=== PATIENT | female | born 1960 | race Hispanic/Latino ===

== ENCOUNTER 2024-02-10 19:44 | Inpatient (IN) | payer SELFPAY ==
[~2024-02-10] VITALS: Ht 162.6 cm; Wt 81.2 kg
[2024-02-10 20:19] VITALS: TEMP 98.9
[2024-02-10] MEDS: Morphine 4mg INJECTION 4 MG/ML INJ IV ONE (20:51)
[2024-02-10] MEDS: ONDANSETRON HCL INJ 2MG/ML 2ML 2 MG/ML VIAL IV STA (20:51)
[2024-02-10] MEDS: SODIUM CHLORIDE 0.9% 1000ML 1,000 ML IV ONE (20:51)
[2024-02-10 20:54] LABS: BASOPHILS # (AUTO) 0.1 (0.0-0.1); BASOPHILS % 0.3 % (0.0-1.0); EOSINOPHILS # (AUTO) 0.1 (0.0-0.4); EOSINOPHILS % 0.4 % (0.0-6.0); HEMATOCRIT 35.6 % (34.2-44.1); LYMPHOCYTES # (AUTO) 1.7 (1.0-3.2); LYMPHOCYTES % 10.2 % (18.0-39.1); MEAN CORPUSCULAR HEMOGLOBIN 26.7 pg (28-32); MEAN CORPUSCULAR HGB CONC 30.9 g/dL (31-35); MEAN CORPUSCULAR VOLUME 86.4 fL (81-99); MONOCYTES # (AUTO) 0.9 (0.2-0.8); MONOCYTES % 5.3 % (4.4-11.3); NEUTROPHILS # (AUTO) 13.9 (2.1-6.9); NEUTROPHILS % 83.3 % (38.7-80.0); PLATELET COUNT 242 x10e3/uL (140-360); RED BLOOD COUNT 4.12 x10e6/uL (3.6-5.1); RED CELL DISTRIBUTION WIDTH 14.5 % (11.7-14.4); WHITE BLOOD COUNT 16.69 x10e3/uL (4.8-10.8)
[2024-02-10 20:56] LABS: BILIRUBIN,URINE NEGATIVE (NEGATIVE); CLARITY,URINE HAZY (CLEAR); COLOR,URINE YELLOW (YELLOW); GLUCOSE, URINE >=1000 (NEGATIVE); KETONES,URINE NEGATIVE (NEGATIVE); LEUKOCYTE ESTERASE ,URINE TRACE (NEGATIVE); NITRITE,URINE NEGATIVE (NEGATIVE); PH,URINE 5.5 (5 - 7); PROTEIN,URINE DIPSTICK >=300 (NEGATIVE); URINE UROBILINOGEN 0.2 mg/dL (0.2 - 1)
[2024-02-10 21:08] LABS: WBC,URINE (MAN) 21-50 /HPF (0-5)
[2024-02-10 21:09] LABS: BACTERIA,URINE FEW /HPF; EPITHELIAL CELLS,URINE MODERATE /LPF
[2024-02-10 21:10] LABS: ALBUMIN 3.7 g/dL (3.5-5.0); ALBUMIN/GLOBULIN RATIO 0.9 (0.8-2.0); ANION GAP 17.2 mmol/L (8-16); BILIRUBIN,TOTAL 0.7 mg/dL (0.2-1.2); CALCIUM 9.9 mg/dL (8.4-10.2); CREATININE, SERUM 3.12 mg/dL (0.57-1.11); POTASSIUM 4.2 mmol/L (3.5-5.1)
[2024-02-10] MEDS: HYDRALAZINE HCL 20 MG/ML VIAL IV PRN (22:27)
[2024-02-10] MEDS ORDERED: ACETAMINOPHEN 1000 MG/100 ML IV PRN (22:45)
[2024-02-10] MEDS ORDERED: DEXTROSE 50% SYRINGE 50 ML IV PRN (22:45)
[2024-02-10] MEDS: LACTATED RINGER'S 1,000 ML INJ ONE (22:46)
[2024-02-10] MEDS: METOPROLOL TARTRATE INJ 1 MG/ML VIAL IV ONE (22:46)
[2024-02-10 23:00] VITALS: PULSE 83; RESP 20
[2024-02-11] VITALS (11 sets, daily range): BP systolic 153–188; BP diastolic 76–81; PULSE 70–96; RESP 18–21; TEMP 97–98.6; O2SAT 93–100
[2024-02-11] MEDS: Morphine 4mg INJECTION 4 MG/ML INJ IV PRN (00:25)
[2024-02-11] MEDS ORDERED: FENOFIBRATE145 MG PO (01:33)
[2024-02-11] MEDS ORDERED: SINGULAIR10 MG PO (01:34)
[2024-02-11] MEDS ORDERED: FARXIGA5 MG PO (01:37)
[2024-02-11] MEDS ORDERED: METOPROLOL TART50 MG PO (01:37)
[2024-02-11] MEDS ORDERED: CLONIDINE HCL0.1 MG PO (01:39)
[2024-02-11] MEDS ORDERED: AMLODIPINE BESY10 MG PO (01:42)
[2024-02-11] MEDS ORDERED: ATORVASTATIN CA20 MG PO (01:45)
[2024-02-11] MEDS ORDERED: LISINOPRIL10 MG PO (01:45)
[2024-02-11] MEDS ORDERED: GLIMEPIRIDE2 MG PO (01:55)
[2024-02-11] MEDS ORDERED: INSULIN AS100 UNIT/2 (02:13)
[2024-02-11] MEDS ORDERED: INSULIN DE100 UNIT/2 (02:13)
[2024-02-11] MEDS ORDERED: BUPIVACAINE 0.5%/EPI 30 ML SDV INJ ONE (07:04)
[2024-02-11] MEDS ORDERED: BUPIVACAINE HCL 0.5% INJ 30 ML VIAL INJ ONE (07:04)
[2024-02-11] MEDS: INSULIN REGULAR, HUMAN 100 UNIT/1 ML SQ SCH (07:30)
[2024-02-11] MEDS ORDERED: ACETAMINOPHEN 325 MG TAB PO PRN (08:00)
[2024-02-11] MEDS ORDERED: ONDANSETRON HCL INJ 2MG/ML 2ML 2 MG/ML VIAL IV PRN (08:00)
[2024-02-11] MEDS: ONDANSETRON HCL INJ 2MG/ML 2ML 2 MG/ML VIAL ONE (08:19)
[2024-02-11] MEDS: SODIUM CHLORIDE 0.9% 1000ML 1,000 ML IV SCH (09:10)
[2024-02-11] MEDS: ONDANSETRON HCL INJ 2MG/ML 2ML 2 MG/ML VIAL IV PRN (11:27)
[2024-02-11] MEDS: HYDROCODONE/APAP 5MG-325MG TAB PO PRN (20:48)
[2024-02-12] VITALS (10 sets, daily range): BP systolic 154–188; BP diastolic 68–77; PULSE 72–110; RESP 18–20; TEMP 97.5–101.6; O2SAT 95–99
[2024-02-12 05:47] LABS: BASOPHILS # (AUTO) 0.1 (0.0-0.1); BASOPHILS % 0.5 % (0.0-1.0); EOSINOPHILS # (AUTO) 0.5 (0.0-0.4); EOSINOPHILS % 5.5 % (0.0-6.0); HEMATOCRIT 26.5 % (34.2-44.1); HEMOGLOBIN 8.2 g/dL (12.0-16.0); LYMPHOCYTES # (AUTO) 1.4 (1.0-3.2); LYMPHOCYTES % 14.7 % (18.0-39.1); MEAN CORPUSCULAR HEMOGLOBIN 26.5 pg (28-32); MEAN CORPUSCULAR HGB CONC 30.9 g/dL (31-35); MEAN CORPUSCULAR VOLUME 85.5 fL (81-99); MONOCYTES # (AUTO) 0.7 (0.2-0.8); MONOCYTES % 7.1 % (4.4-11.3); NEUTROPHILS # (AUTO) 6.6 (2.1-6.9); NEUTROPHILS % 71.8 % (38.7-80.0); PLATELET COUNT 184 x10e3/uL (140-360); RED CELL DISTRIBUTION WIDTH 14.7 % (11.7-14.4); WHITE BLOOD COUNT 9.17 x10e3/uL (4.8-10.8)
[2024-02-12 06:07] LABS: ANION GAP 14.3 mmol/L (8-16); CALCIUM 8.5 mg/dL (8.4-10.2); CREATININE, SERUM 3.23 mg/dL (0.57-1.11); POTASSIUM 4.3 mmol/L (3.5-5.1)
[2024-02-12] MEDS: HYDRALAZINE HCL 20 MG/ML VIAL IV PRN (10:23)
[2024-02-12] MEDS: NON-FORMULARY MEDICATION (Dapagliflozin Propanediol (Farxiga) 1 TAB) PO SCH (10:45)
[2024-02-12] MEDS: FENOFIBRATE 160 MG PO SCH (10:45)
[2024-02-12] MEDS: MONTELUKAST SODIUM 10 MG TAB PO SCH (12:31)
[2024-02-12] MEDS: ATORVASTATIN 40 MG TAB PO SCH (12:31)
[2024-02-12] MEDS: AMLODIPINE BESYLATE 10 MG TAB PO SCH (12:32)
[2024-02-12] MEDS: CLONIDINE HCL 0.1 MG TAB PO SCH (12:32)
[2024-02-12] MEDS: LISINOPRIL 20 MG TAB PO SCH (12:33)
[2024-02-12] MEDS: GLIMEPIRIDE 2 MG TAB PO SCH (16:54)
[2024-02-12] MEDS: METOPROLOL TARTRATE 50 MG TAB PO SCH (16:55)
[2024-02-12] MEDS: NIFEDIPINE CR 30 MG TAB PO SCH (21:32)
[2024-02-13] VITALS (9 sets, daily range): BP systolic 139–183; BP diastolic 60–76; PULSE 65–91; RESP 18; TEMP 97.3–99; O2SAT 95–100
[2024-02-13 08:18] LABS: BASOPHILS # (AUTO) 0.1 (0.0-0.1); BASOPHILS % 0.7 % (0.0-1.0); EOSINOPHILS # (AUTO) 0.5 (0.0-0.4); EOSINOPHILS % 6.1 % (0.0-6.0); HEMATOCRIT 28.2 % (34.2-44.1); HEMOGLOBIN 8.4 g/dL (12.0-16.0); LYMPHOCYTES # (AUTO) 1.3 (1.0-3.2); LYMPHOCYTES % 15.7 % (18.0-39.1); MEAN CORPUSCULAR HGB CONC 29.8 g/dL (31-35); MEAN CORPUSCULAR VOLUME 87.3 fL (81-99); MONOCYTES # (AUTO) 0.6 (0.2-0.8); MONOCYTES % 6.7 % (4.4-11.3); NEUTROPHILS # (AUTO) 5.7 (2.1-6.9); NEUTROPHILS % 70.2 % (38.7-80.0); PLATELET COUNT 202 x10e3/uL (140-360); RED BLOOD COUNT 3.23 x10e6/uL (3.6-5.1); RED CELL DISTRIBUTION WIDTH 14.4 % (11.7-14.4); WHITE BLOOD COUNT 8.17 x10e3/uL (4.8-10.8)
[2024-02-13 08:43] LABS: ALBUMIN 2.8 g/dL (3.5-5.0); ALBUMIN/GLOBULIN RATIO 0.8 (0.8-2.0); ANION GAP 15.1 mmol/L (8-16); BILIRUBIN,TOTAL 0.3 mg/dL (0.2-1.2); CALCIUM 8.7 mg/dL (8.4-10.2); CREATININE, SERUM 3.51 mg/dL (0.57-1.11); MAGNESIUM 1.9 MG/DL (1.3-2.1); POTASSIUM 4.1 mmol/L (3.5-5.1); TOTAL PROTEIN 6.4 g/dL (6.5-8.1)
[2024-02-13 09:28] LABS: CHOL/HDL RATIO 2.6 (3.0-3.6)
[2024-02-13 09:45] LABS: FERRITIN 259.5 ng/mL (4.63-204.00); FREE T4 (FREE THYROXINE) 1.29 ng/dL (0.8-1.8); THYROID STIMULATING HORMONE 0.917 uIU/mL (0.350-4.940)
[2024-02-13] MEDS: CYANOCOBALAMIN INJ 1,000 MCG/ML VIAL IM ONE (11:43)
[2024-02-14] VITALS: BP 133/65; PULSE 74; RESP 17; TEMP 98.4; O2SAT 97
[2024-02-14 04:00] VITALS: BP 134/56; PULSE 71; RESP 17; TEMP 97.8; O2SAT 99
[2024-02-14 07:39] LABS: BASOPHILS # (AUTO) 0.1 (0.0-0.1); BASOPHILS % 0.8 % (0.0-1.0); EOSINOPHILS # (AUTO) 0.4 (0.0-0.4); EOSINOPHILS % 6.6 % (0.0-6.0); HEMATOCRIT 27.1 % (34.2-44.1); HEMOGLOBIN 8.2 g/dL (12.0-16.0); LYMPHOCYTES # (AUTO) 0.9 (1.0-3.2); LYMPHOCYTES % 13.7 % (18.0-39.1); MEAN CORPUSCULAR HEMOGLOBIN 26.4 pg (28-32); MEAN CORPUSCULAR HGB CONC 30.3 g/dL (31-35); MEAN CORPUSCULAR VOLUME 87.1 fL (81-99); MONOCYTES # (AUTO) 0.4 (0.2-0.8); MONOCYTES % 6.9 % (4.4-11.3); NEUTROPHILS # (AUTO) 4.5 (2.1-6.9); NEUTROPHILS % 71.7 % (38.7-80.0); PLATELET COUNT 213 x10e3/uL (140-360); RED BLOOD COUNT 3.11 x10e6/uL (3.6-5.1); RED CELL DISTRIBUTION WIDTH 14.5 % (11.7-14.4); WHITE BLOOD COUNT 6.34 x10e3/uL (4.8-10.8)
[2024-02-14 07:55] VITALS: BP 159/71; PULSE 74; RESP 19; TEMP 98.2; O2SAT 100
[2024-02-14 08:00] VITALS: BP 159/71; PULSE 74; RESP 19; TEMP 98.2; O2SAT 100
[2024-02-14 08:16] LABS: ANION GAP 14.8 mmol/L (8-16); CALCIUM 8.9 mg/dL (8.4-10.2); CREATININE, SERUM 3.35 mg/dL (0.57-1.11); POTASSIUM 3.8 mmol/L (3.5-5.1)
[2024-02-14] MEDS ORDERED: ONDANSETRON ODT4 MG PO (09:04)
[2024-02-14] MEDS ORDERED: CLONIDINE HCL0.1 MG PO (09:04)
[2024-02-14] MEDS ORDERED: ACETAMINOPHEN325 M1 PO (09:04)
[2024-02-14] MEDS ORDERED: NIFEDIPINE ER30 M1 PO (09:04)
[2024-02-14] MEDS: CYANOCOBALAMIN INJ 1,000 MCG/ML VIAL IM SCH (09:21)
[2024-02-14] MEDS ORDERED: ONDANSETRON HCL 4 MG ORAL DISINTEGRATING TAB PO PRN (10:00)
[2024-02-14] MEDS ORDERED: METRONIDAZOLE500 MG PO (10:47)
[2024-02-14] MEDS ORDERED: CIPRO500 MG PO (10:47)
[2024-02-14 11:33] VITALS: BP 153/77; PULSE 68; RESP 20; TEMP 98.9; O2SAT 100
== END 2024-02-14 16:34 | disposition home or self-care (01) | DRG 398 ==
LOC: ER 19:48 → ERHOLD 22:37 → MED/SURG2 23:42
PROVIDERS: ADMIT Internal Medicine; ATTEND Internal Medicine
PROC: 0DTJ4ZZ Resection of Appendix, Percutaneous Endoscopic Approach (ICD-10-PCS; principal; 2024-02-11 07:11)
DX: K35.80 Unspecified acute appendicitis (principal); N17.9 Acute kidney failure, unspecified; E11.22 Type 2 diabetes mellitus with diabetic chronic kidney disease; I12.9 Hypertensive chronic kidney disease with stage 1 through stage 4 chronic kidney disease, or unspecified chronic kidney disease; N18.4 Chronic kidney disease, stage 4 (severe); E11.65 Type 2 diabetes mellitus with hyperglycemia; E78.49 Other hyperlipidemia; K76.0 Fatty (change of) liver, not elsewhere classified; Z79.84 Long term (current) use of oral hypoglycemic drugs; Z79.4 Long term (current) use of insulin
CPT/HCPCS: 36415; 74176; 76770; 80048; 80053; 80061; 81001; 82533; 82607; 82728; 82746; 82948; 83036; 83540; 83690; 83735; 84100; 84439; 84443; 84466; 85025; 87086; 88304; 94799; 96372; 99284; J0360; J2270; J2405; J2543; J3420; J7030